=== PATIENT | male | born 1955 | race Caucasian/White ===

== ENCOUNTER 2022-07-08 17:49 | Emergency (ER) | payer MEDICARE ==
[~2022-07-08] VITALS: Ht 170.2 cm; Wt 81.6 kg
[2022-07-08] MEDS ORDERED: LIDOCAINE 2%-EPI 1:100,000 20 ML VIAL IJ ONE (18:30)
[2022-07-08] MEDS ORDERED: LIDOCAINE 2%-EPI 1:100,000 20 ML VIAL ONE (18:36)
[2022-07-08] MEDS ORDERED: SULF1TAB48 PO (19:26)
[2022-07-08] MEDS ORDERED: OXYC-128 PO (19:26)
--- NOTE | 2022-07-08 19:30 | NUR ---
Patient discharged to home in stable condition. Written and verbal after care instructions given. Patient verbalizes understanding of instructions. Stressed follow up or return to ER for worsening s/s. Patient out of ER with steady gait, no acute signs of distress, VSS, all belongings taken.
[2022-07-08 19:33] VITALS: BP 142/84
== END 2022-07-08 19:33 | disposition home or self-care (01) ==
LOC: ER 17:49
DX: L02.414 Cutaneous abscess of left upper limb (principal); L72.3 Sebaceous cyst; Z95.5 Presence of coronary angioplasty implant and graft
CPT/HCPCS: 87070; A4663

== ENCOUNTER 2022-07-10 15:19 | Emergency (ER) | payer MEDICARE ==
[~2022-07-10] VITALS: Ht 175.3 cm; Wt 88.5 kg
[~2022-07-10 15:19] MED LIST: OXYC-128 PO; SULF1TAB48 PO
--- NOTE | 2022-07-10 16:10 | NUR ---
Patient discharged to home in stable condition. Written and verbal after care instructions given. Patient verbalizes understanding of instructions. Stressed follow up or return to ER for worsening s/s. packing removal by MD Stack no s/s of infection noted, cleanse with NS, covered with gauze.
[2022-07-10 16:29] VITALS: BP 127/78
== END 2022-07-10 16:20 | disposition home or self-care (01) ==
LOC: ER 15:19
DX: L02.414 Cutaneous abscess of left upper limb (principal); L03.114 Cellulitis of left upper limb; I25.10 Atherosclerotic heart disease of native coronary artery without angina pectoris; Z95.5 Presence of coronary angioplasty implant and graft
CPT/HCPCS: A4663